=== PATIENT | female | born 1975 | race Caucasian/White ===

== ENCOUNTER → 2018-01-22 | Outpatient (CLI) | payer SELFPAY ==
[~2018-01-22] MED LIST: APRI1 EACH PO; ASPI81CH PO; CRUTCH2 XX; IBUP800 PO; OXYACE5T PO; Percocet 5-3251 EACH PO; Zofran Odt4 MG SL
[2018-01-24 04:12] LABS: DHEA-SO4 124 ug/dL (27-199)
[2018-01-24 04:15] LABS: Estradiol 24 pg/mL
== END ==
LOC: LAB EV 10:13 → LAB SHORT 10:13
PROVIDERS: Nurse Practitioner Family
DX: R53.83 Other fatigue (principal); N95.9 Unspecified menopausal and perimenopausal disorder
CPT/HCPCS: 82627; 82670; 84144; 84402; 84403